=== PATIENT | male | born 1965 | race American Indian/Alaskan Native ===

== ENCOUNTER 2017-12-22 15:34 | Outpatient (CLI) | payer BC ==
[2017-12-22 16:17] LABS: Blood Urea Nitrogen 19 mg/dL (9-20)
--- NOTE | 2017-12-22 19:09 | Magnetic Resonance Report ---
FINAL REPORT EXAM: MR BRAIN WO/W CON HISTORY: dizziness, left sided numbness TECHNIQUE: Pre gadolinium T1 and T2 weighted sagittal, axial, coronal and diffusion-weighted images of the brain were obtained. Following IV administration of gadolinium T1 weighted axial and coronal images of the brain were obtained. Comparison: None FINDINGS: There are small scattered T2 signal abnormalities in the subcortical and deep white matter of the frontal lobes that are nonspecific in appearance but may represent chronic post ischemic or chronic postinflammatory change. There is no abnormal enhancement in these regions to suggest the presence of acute demyelination or an acute inflammatory process. There is no evidence of acute ischemia nor intracranial hemorrhage. There are no areas of abnormal intracranial enhancement and no evidence of intracranial mass. The ventricles are normal size. There is diminutive caliber of the flow void in the right vertebral artery at the skullbase that is less than the caliber of the vessel. There is otherwise expected flow void in the major intracranial vessels. The extracranial structures are notable for evidence of previous anterior cervical fusion with retained hardware in the C3 and C4 vertebra. The craniocervical junction is unremarkable in appearance. IMPRESSION: 1. Small scattered T2 signal abnormalities in the subcortical and deep white matter of the frontal lobes that are nonspecific in appearance but may represent chronic post ischemic or chronic postinflammatory change. No evidence of acute infarct. 2. Diminutive caliber of the flow void in the right vertebral artery at the skull base that is less than the caliber of the vessel. In the proper clinical setting a right vertebral artery dissection would need to be considered. If there is a clinical concern for right vertebral artery dissection, CT angiogram neck would be helpful. 3. Previous anterior cervical fusion with retained hardware. This study was discussed with Dr Buchanan at 7 p.m. December 22, 2017.
== END 2017-12-22 15:35 | disposition home or self-care (01) ==
LOC: MRI 15:34
PROVIDERS: ATTEND Internal Medicine
DX: M43.22 Fusion of spine, cervical region (principal)
CPT/HCPCS: 36415; 70553; 82565; 84520; A9577

== ENCOUNTER 2017-12-26 09:26 | Outpatient (CLI) | payer BC ==
--- NOTE | 2017-12-26 19:56 | Cat Scan Report ---
FINAL REPORT PROCEDURE: CT ANGIO NECK TECHNIQUE: Computerized tomographic angiography of the neck was performed after the IV injection of iodinated nonionic contrast including image processing. The image data was postprocessed using 2-dimensional multiplanar reformatted (MPR) and 3-dimensional (MIP and/or volume rendered) techniques. HISTORY: Dizziness and giddiness COMPARISON: No prior studies are available for comparison. Note: Assessment of carotid artery stenosis is based on measurement of the distal internal carotid artery diameter as the denominator for stenosis calculations and the [place] Symptomatic Carotid Endarterectomy Trial (NASCET) stenosis criteria . CPT 3100F FINDINGS: The right and left common carotid arteries appear widely patent. There is calcified and noncalcified plaquing visualized in the left carotid bulb extending into the left internal carotid artery narrowing the internal carotid artery origin approximately 50 percent best visualized on sagittal reconstruction image 82 series 601. There is small amount of calcified plaquing visualized in the right carotid bulb narrowing the vessel less than 50 percent. The internal carotid artery appears widely patent. Both vertebral arteries appear to be widely patent. There is a dominant left vertebral artery, normal variant. IMPRESSION: Calcified and noncalcified plaquing seen in the left carotid bulb extending into the origin of the internal carotid artery narrowing the vessel approximately 50 percent. Small amount of calcified plaquing seen in the right carotid bulb as described narrowing the vessel less than 50 percent. No high-grade areas of stenosis are seen. Vertebral arteries bilaterally appear widely patent. There is a dominant left vertebral artery present, normal variant.
== END 2017-12-26 09:27 | disposition home or self-care (01) ==
LOC: CT 09:26
PROVIDERS: ATTEND Internal Medicine
DX: I65.23 Occlusion and stenosis of bilateral carotid arteries (principal); I25.10 Atherosclerotic heart disease of native coronary artery without angina pectoris; I10 Essential (primary) hypertension; E11.9 Type 2 diabetes mellitus without complications; E78.5 Hyperlipidemia, unspecified; E78.00 Pure hypercholesterolemia, unspecified; K21.9 Gastro-esophageal reflux disease without esophagitis; M19.90 Unspecified osteoarthritis, unspecified site
CPT/HCPCS: 70498; Q9967

== ENCOUNTER 2018-01-27 15:23 | Outpatient (CLI) | payer BC ==
--- NOTE | 2018-01-28 09:55 | Magnetic Resonance Report ---
MR CERVICAL SPINE WITHOUT CONTRAST HISTORY: Gait abnormality. TECHNIQUE: Axial T2 and T2 gradient. Sagittal T1, T2 and STIR. COMPARISON: None facility. FINDINGS: There has been previous anterior fusion with disc spacer placement at C3-4. There is near complete bony fusion of the C3-4 disc space. There is normal height and alignment of the cervical vertebral bodies otherwise. No evidence for fracture or bone lesion. There is diffuse disc desiccation throughout the cervical region. Mild disc space narrowing at C4-5. Moderate disc space narrowing at C5-6. The facet joints are in appropriate relationship and demonstrate minimal osteoarthritic changes. 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 There is a focal area of increased intramedullary T2 signal in the left side of the spinal cord at the level of C4. This probably represents focal myelomalacia although demyelination is not excluded. C2-3: Within normal limits. C3-4: Fusion changes are again noted. Mild bilateral uncovertebral spurring is identified, left greater than right. Left neural foraminal narrowing is estimated at 50%. C4-5: A moderate diffuse posterior bulging disc is identified which effaces the anterior thecal sac. There is mild to moderate central canal narrowing measuring 7 mm in AP dimension. Bilateral neural foraminal narrowing is estimated at 50%. C5-6: A moderate to large posterior bulging disc is present which lateralizes to the left side. There is moderate central canal narrowing measuring 7 mm in AP dimension. Bilateral neural foraminal narrowing is estimated at 50% on the right and 75% on the left. C6-7: A large left paracentral disc protrusion is identified which exerts mass effect on the left side of the spinal cord. This may represent a more acute process/herniation. There is moderate to severe central canal narrowing measuring 6 mm in AP dimension. Right neural foraminal narrowing is estimated at 25%. Left neural foraminal narrowing is estimated at 75%. C7-T1: Within normal limits. IMPRESSION: Stable appearance of the anterior fusion changes at C3-4. 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 Moderate to severe bulging discs and central canal narrowing are identified at C4-5, C5-6 and C6-7. C6-7 appears to be the most affected level as outlined above. There is a focal area of abnormal cord signal on the left side at the level of C4 which probably represents myelomalacia.
== END 2018-01-27 15:24 | disposition home or self-care (01) ==
LOC: MRI 15:23
PROVIDERS: ATTEND Family Medicine
DX: M50.223 Other cervical disc displacement at C6-C7 level (principal); M43.22 Fusion of spine, cervical region; I10 Essential (primary) hypertension; I25.10 Atherosclerotic heart disease of native coronary artery without angina pectoris; E78.5 Hyperlipidemia, unspecified; E11.9 Type 2 diabetes mellitus without complications; K21.9 Gastro-esophageal reflux disease without esophagitis; M19.90 Unspecified osteoarthritis, unspecified site
CPT/HCPCS: 72141

== ENCOUNTER 2021-01-19 06:24 | Day surgery (SDC) | payer BC ==
[2021-01-19] MEDS ORDERED: ASPIRIN EC 325 MG TAB PO NR (07:04)
[2021-01-19 07:33] LABS: Basophils % (Auto) 0.6 % (0.0-1.8); Eosinophils % (Auto) 0.7 % (0.0-4.3); Hematocrit 41.4 % (35.5-45.6); Hemoglobin 14.4 gm/dl (11.8-15.2); Lymphocytes # (Auto) 1.9 K/mm3 (1.2-5.4); Lymphocytes % (Auto) 49.8 % (13.4-35.0); Mean Corpuscular HGB Conc 35 % (32-34); Mean Corpuscular Volume 92 fl (84-94); Monocytes # (Auto) 0.3 K/mm3 (0.0-0.8); Monocytes % (Auto) 6.7 % (0.0-7.3); Platelet Count 134 K/mm3 (140-440); Red Blood Count 4.51 M/mm3 (3.65-5.03); Red Cell Distribution Width 13.2 % (13.2-15.2)
[2021-01-19 07:46] LABS: BUN/Creatinine Ratio 21; Blood Urea Nitrogen 19 mg/dL (9-20); Calcium 9.1 mg/dL (8.4-10.2); Hemolysis Index 4; INR 0.89 (0.87-1.13)
[2021-01-19] MEDS ORDERED: SODIUM CHLORIDE 0.9% 500 ML 500 ML IV SCH (08:00)
[2021-01-19] MEDS ORDERED: HEPARIN/NS 5000 UNIT/500ML 1,000 ML IR ONE (08:10)
[2021-01-19] MEDS: MIDAZOLAM 2 MG/2 ML INJ ONE ×2 (08:43→08:50)
[2021-01-19] MEDS: fentaNYL 100 MCG/2 ML INJ ONE ×2 (08:43→08:50)
[2021-01-19] MEDS: VERAPAMIL 5 MG/2 ML INJ ONE ×2 (08:44→08:58)
[2021-01-19] MEDS: LIDOCAINE (2%) 20 MG/1 ML VIAL 20 ML MDV INFILTRATI ONE ×2 (08:44→08:57)
[2021-01-19] MEDS: NITROGLYCERIN SYRINGE 3 ML ONE ×2 (08:47→08:57)
[2021-01-19] MEDS: HEPARIN 10,000 UNITS/10 ML VIAL ONE ×2 (08:58→08:59)
--- NOTE | 2021-01-19 09:33 | Short Stay Summary ---
Short Stay Documentation Date of service: 01/19/21 - History H&P: obtained from office - Allergies and Medications Current Medications: Allergies No Known Allergies Allergy (Verified 03/17/17 07:00) Home Medications Medication Instructions Recorded Confirmed Last Taken Type Amlodipine Besylate 10 mg PO DAILY 03/17/17 01/19/21 01/17/21 History 10 mg Esomeprazole Magnesium [Nexium] 40 mg PO DAILY 03/17/17 01/19/21 01/17/21 History 40 mg Simvastatin 40 mg PO DAILY 03/17/17 01/19/21 01/17/21 History 40 mg Aspirin EC [Halfprin EC] 81 mg PO DAILY 01/19/21 01/19/21 01/17/21 History 81 mg Fluticasone (Nf) [Flovent 44 1 puff INHALATION PRN PRN 01/19/21 01/19/21 01/17/21 History MCG/PUFF HFA] 1 puff Sildenafil Citrate [Viagra] 100 mg PO PRN PRN 01/19/21 01/19/21 01/12/21 History 100 mg Triprolid/Phenyleph/Dm/Acetam 20 ml PO PRN PRN 01/19/21 01/19/21 01/17/21 History [Mucinex Nightshft Cold-Flu Clr] 20 ml Active Medications Sodium Chloride (Nacl 0.9% 500 Ml) 500 mls @ 50 mls/hr IV DIRECT ELIZABETH Stop: 01/19/21 17:59 Last Admin: 01/19/21 07:34 Dose: 50 mls/hr Documented by: - Brief post op/procedure progress note Date of procedure: 01/19/21 Pre-op diagnosis: CAD Post-op diagnosis: same Procedure: see report Anesthesia: local Estimated blood loss: minimal Pathology: none - Disposition Condition at discharge: Good Disposition: 01 HOME / SELF CARE / HOMELESS - Discharge Diagnoses (1) CAD (coronary artery disease) Status: Chronic (2) Diabetes Status: Chronic (3) Hyperlipidemia Status: Chronic (4) Hypertension Status: Chronic (5) ASHLEY (obstructive sleep apnea) Status: Chronic Short Stay Discharge Plan Activity: advance as tolerated Diet: low fat, low cholesterol, low salt, diabetic Wound: keep clean and dry, per your surgeon's advice Additional Instructions: Patient has follow up appointment with Dr. Wright, [facility], on 02/08/2021 at 3:30pm at our [place] location. Phone Follow up with: ANA MARÍA GALAN MD [Primary Care Provider] - 7 Days Prescriptions: ISOSORBIDE MONOnitrate [Imdur ER] 30 mg PO QDAY #30 tablet Metoprolol Xl [Metoprolol SUCCINATE ER TAB] 25 mg PO QDAY #30 tablet
--- NOTE | 2021-01-19 09:41 | Cardiac Catherization Report ---
DATE OF SERVICE: 01/19/2021 CLINICAL INFORMATION: He is here for a left heart catheterization for abnormal stress test with some runs of nonsustained V-tach with some atypical chest pain and shortness of breath. He has diabetes, has known coronary arterial disease based on catheterization in 2017, mid LAD 50-60%, OM2 subtotal. Procedure was done with moderate sedation, started at 8:50, finished at 9:08; 18 minutes of moderate sedation. DESCRIPTION OF PROCEDURE: Procedure was done via the right radial artery, sterile technique, local anesthesia, 6-Malian radial sheath inserted. Left system engaged with a JL3.5 catheter. The left main is a large caliber and patent. LAD is a small to medium caliber vessel, proximal is patent, mid is the same, 50-60%, distal is patent. Diagonal 1 small to medium caliber vessel, patent. Mild luminal irregularity. Circumflex is a small to medium caliber vessel proximally and then it trifurcates into a small caliber OM1 with severe tortuosity and has a proximal 80%. OM2 is a small caliber vessel, less than 2 mm that is 100% in the midportion. You see faint collaterals feeding into the distal OM2. [place] circ or OM3 has a proximal 60% lesion. These were all less than 2 mm vessels in the circumflex system. RCA proximal has a 50-60%, a large caliber vessel of moderate tortuosity, distal is patent. PDA and PLV patent. LV gram done in [place] and [place] shows normal LV function, LVEDP 14 mmHg, LV is 148, aortic is 140/74. No gradient across the aortic valve on pullback. A 5-Malian catheter was taken over guidewire, 6-Malian radial sheath was discontinued. Radial band applied. No hematoma, no bleeding. SUMMARY: Three-vessel coronary artery disease, left main patent, LAD mid 50-60%, circumflex trifurcation. OM1 proximally 80% that are 2 mm vessel proximally; OM2, small caliber vessel, less than 2 mm becomes 100% and OM3 proximal 60%, RCA proximal 60%, multivessel disease. We will treat medically. Start the patient on beta wilbert therapy. Continue aspirin, statin, add Imdur, and we will treat medically at this time and aggressive diabetes and cholesterol control. TID: [id number] RECEIPT: [id number] DUSTY/KIARA
[2021-01-19] MEDS ORDERED: HYDROcodone/ACETAMINOPHEN 5-325 MG TAB PO PRN (10:00)
[2021-01-19] MEDS ORDERED: METOPROLOL SUCCINATE XL 25 MG TAB PO SCH (10:00)
[2021-01-19] MEDS ORDERED: traMADol 50 MG TAB PO PRN (10:00)
[2021-01-19 13:05] VITALS: BP 141/84
--- NOTE | 2021-01-22 14:05 | Electrocardiograph Report ---
[facility] Test Date: 2021-01-19 Test Time: 07:43:27 Pat Name: ALBERTO PEREZ Department: Room: Gender: M [employer] Operator: [place] : 1965 Requested By: TIFFANIE MATHIS Order Number: [id number] Reading MD: Chris Miranda Measurements Intervals [place] Rate: 52 P: 54 NH: 156 QRS: 9 QRSD: 91 T: -13 QT: 453 QTc: 422 Interpretive Statements Sinus rhythm No previous ECG available for comparison Electronically Signed On 01-22-2021 14:04:43 EDT by Chris Miranda
== END 2021-01-19 13:48 | disposition home or self-care (01) ==
LOC: CATHLABREC 06:24
PROVIDERS: ATTEND Internal Medicine
DX: R07.9 Chest pain, unspecified (principal); R93.9 Diagnostic imaging inconclusive due to excess body fat of patient; I25.10 Atherosclerotic heart disease of native coronary artery without angina pectoris; I10 Essential (primary) hypertension; E11.9 Type 2 diabetes mellitus without complications; G47.33 Obstructive sleep apnea (adult) (pediatric); E78.00 Pure hypercholesterolemia, unspecified; K21.9 Gastro-esophageal reflux disease without esophagitis; M19.90 Unspecified osteoarthritis, unspecified site; Z79.4 Long term (current) use of insulin; Z79.82 Long term (current) use of aspirin; Z79.899 Other long term (current) drug therapy; Z98.890 Other specified postprocedural states; Z82.49 Family history of ischemic heart disease and other diseases of the circulatory system; Z83.3 Family history of diabetes mellitus
CPT/HCPCS: 36415; 80048; 85025; 85610; 85730; 93005; 93458; 99156; C1894; J1644; J2250; J3010; J7040; Q9967